=== PATIENT | female | born 1970 | race American Indian/Alaskan Native ===

== ENCOUNTER 2017-01-18 19:31 | Emergency (ER) | payer SELFPAY ==
[2017-01-18 20:17] LABS: Basophils % (Auto) 0.8 % (0.0-1.8); Eosinophils % (Auto) 0.5 % (0.0-4.3); Hematocrit 38.8 % (30.3-42.9); Hemoglobin 12.6 gm/dl (10.1-14.3); Mean Corpuscular HGB Conc 33 % (30-34); Mean Corpuscular Volume 75 fl (79-97); Platelet Count 497 K/mm3 (140-440); Red Blood Count 5.14 M/mm3 (3.65-5.03); Red Cell Distribution Width 17.9 % (13.2-15.2); White Blood Count 11.7 K/mm3 (4.5-11.0)
[2017-01-18 20:29] LABS: Mean Corpuscular Hemoglobin 25 pg (28-32)
[2017-01-18 20:32] LABS: INR 1.01 (0.87-1.13)
[2017-01-18 20:33] LABS: Partial Thromboplastin Time 26.7 Sec. (24.2-36.6)
[2017-01-18 20:34] VITALS: BP 183/99
[2017-01-18 20:36] LABS: Anion Gap 19 mmol/L; Blood Urea Nitrogen 8 mg/dL (7-17); Calcium 9.3 mg/dL (8.4-10.2); Carbon Dioxide 28 mmol/L (22-30); Chloride 94.7 mmol/L (98-107); Glucose 131 mg/dL (65-100); Sodium 139 mmol/L (137-145)
--- NOTE | 2017-01-19 14:43 | ED Elopement Review ---
ED Pt Elopement review - Results review Lab results: Laboratory Tests 01/18/17 01/18/17 01/18/17 20:00 20:00 20:00 WBC 11.7 H RBC 5.14 H Hgb 12.6 Hct 38.8 MCV 75 L MCH 25 L MCHC 33 RDW 17.9 H Plt Count 497 H Lymph % (Auto) 26.1 Payne % (Auto) 5.1 Eos % (Auto) 0.5 Baso % (Auto) 0.8 Lymph # 3.1 Payne # 0.6 Eos # 0.1 Baso # 0.1 Seg Neutrophils % 67.5 Seg Neutrophils # 7.9 H PT 13.2 INR 1.01 APTT 26.7 Sodium 139 Potassium 3.0 L Chloride 94.7 L Carbon Dioxide 28 Anion Gap 19 BUN 8 Creatinine 0.8 Estimated GFR > 60 BUN/Creatinine Ratio 10.00 Glucose 131 H Calcium 9.3 Troponin T < 0.010 HCG, Qual 01/18/17 20:00 WBC RBC Hgb Hct MCV MCH MCHC RDW Plt Count Lymph % (Auto) Payne % (Auto) Eos % (Auto) Baso % (Auto) Lymph # Payne # Eos # Baso # Seg Neutrophils % Seg Neutrophils # PT INR APTT Sodium Potassium Chloride Carbon Dioxide Anion Gap BUN Creatinine Estimated GFR BUN/Creatinine Ratio Glucose Calcium Troponin T HCG, Qual Negative - Call Back decision Pt Call Back Decision: Call pt to return to ED [facility] (chest pain will likely require inpatient evaluation)
== END 2017-01-19 03:03 | disposition left against medical advice (07) ==
LOC: ED 19:31
DX: R07.9 Chest pain, unspecified (principal); E87.6 Hypokalemia
CPT/HCPCS: 36415; 80048; 84484; 84703; 85025; 85610; 85730; 93005; 93010

== ENCOUNTER 2017-01-23 15:45 | Inpatient (IN) | payer BC ==
--- NOTE | 2017-01-23 16:34 | Emergency Department Report ---
ED General Adult HPI - General Chief complaint: Recheck/Abnormal Lab/Rx Stated complaint: CP/DISCOMFORT Time Seen by Provider: 01/23/17 16:15 Source: patient Mode of arrival: Ambulatory Limitations: No Limitations - History of Present Illness Initial comments: 46-year-old female with history of hypertension, GERD, panic attacks presenting today because of low potassium. Patient states that she was her primary doctor week ago and had a potassium of 2.9. He had asked her to come to the emergency room when she came here but left without being seen. Her potassium here at the time was 3.0 and she is called back for evaluation. Patient states that she's been having left chest pain which she describes as numbness in the last couple weeks, states that the symptoms have been present in the past and have been attributed to a panic attack. Patient states that she recently had 2 sisters and she has been anxious related to this. Primary doctor is called in potassium prescription, 40 mEq everyday for the last 5 days. Thinks that her potassium may be low because she has not been eating as much. She is on 1 mg of Xanax 4 times a day as well as oxycodone 30 mg 3 times a day for chronic pain related to degenerative joint disease in her lower extremities. This is prescribed by her doctor. Patient had a prior stress test which was negative. - Related Data Home Medications Medication Instructions Recorded Confirmed Last Taken ALPRAZolam [Xanax TAB] 1 mg PO QID 01/23/17 01/23/17 01/22/17 Metoprolol [Lopressor TAB] 50 mg PO BID 01/23/17 01/23/17 Unknown Omeprazole Magnesium [PriLOSEC Otc] 20 mg PO QDAY 01/23/17 01/23/17 01/23/17 Oxycodone HCl [Roxicodone TAB] 30 mg PO QID 01/23/17 01/23/17 01/23/17 Triamter/Hctz 75-50 mg [Maxzide 1 tab PO QDAY 01/23/17 01/23/17 01/23/17 75-50 mg] Zolpidem [Ambien] 10 mg PO QHS 01/23/17 01/23/17 01/22/17 Allergies Allergy/AdvReac Type Severity Reaction Status Date / Time No Known Allergies Allergy Verified 01/18/17 19:43 ED Review of Systems ROS: Stated complaint: CP/DISCOMFORT Other details as noted in HPI Comment: All other systems reviewed and negative Constitutional: denies: chills, fever Eyes: denies: eye pain Respiratory: denies: cough Cardiovascular: chest pain Gastrointestinal: denies: abdominal pain, nausea, vomiting Genitourinary: denies: urgency Skin: denies: rash Neurological: denies: weakness, numbness, paresthesias, confusion, abnormal gait , vertigo Psychiatric: anxiety. denies: homicidal thoughts, suicidal thoughts ED Past Medical Hx - Past Medical History Previous Medical History?: Yes Hx Hypertension: Yes Hx GERD: Yes Additional medical history: HTN, Anxiety, Insomia, Foot pain, DDD - Surgical History Past Surgical History?: Yes Additional Surgical History: Tubal, Feet, EYE - Social History Smoking Status: Current Every Day Smoker Substance Use Type: None - Medications Home Medications: Home Medications Medication Instructions Recorded Confirmed Last Taken Type ALPRAZolam [Xanax TAB] 1 mg PO QID 01/23/17 01/23/17 01/22/17 History Metoprolol [Lopressor TAB] 50 mg PO BID 01/23/17 01/23/17 Unknown History Omeprazole Magnesium [PriLOSEC Otc] 20 mg PO QDAY 01/23/17 01/23/17 01/23/17 History Oxycodone HCl [Roxicodone TAB] 30 mg PO QID 01/23/17 01/23/17 01/23/17 History Triamter/Hctz 75-50 mg [Maxzide 1 tab PO QDAY 01/23/17 01/23/17 01/23/17 History 75-50 mg] Zolpidem [Ambien] 10 mg PO QHS 01/23/17 01/23/17 01/22/17 History ED Physical Exam - General Limitations: No Limitations - Head Head exam: Present: atraumatic - Eye Eye exam: Present: normal appearance - ENT ENT exam: Present: normal exam - Respiratory Respiratory exam: Present: normal lung sounds bilaterally. Absent: respiratory distress - Cardiovascular Cardiovascular Exam: Present: regular rate, normal rhythm, normal heart sounds - GI/Abdominal GI/Abdominal exam: Present: soft. Absent: distended, tenderness - Extremities Exam Extremities exam: Present: normal inspection - Neurological Exam Neurological exam: Present: alert, oriented X3 - Psychiatric Psychiatric exam: Present: other (depressed, tearful when talking about her sisters). Absent: manic, homicidal ideation - Skin Skin exam: Present: normal color ED Course Vital Signs 01/23/17 01/23/17 01/23/17 15:56 16:54 16:59 Temperature 98.4 F Pulse Rate 68 Respiratory 16 16 Rate Blood Pressure 128/91 O2 Sat by Pulse 98 100 Oximetry 01/23/17 01/23/17 01/23/17 17:20 17:26 17:30 Temperature Pulse Rate 65 66 Respiratory 16 16 13 Rate Blood Pressure 116/80 O2 Sat by Pulse 100 100 99 Oximetry 01/23/17 01/23/17 01/23/17 17:59 18:00 18:31 Temperature Pulse Rate 68 Respiratory 13 13 Rate Blood Pressure 113/76 O2 Sat by Pulse 97 100 Oximetry 01/23/17 01/23/17 19:01 19:35 Temperature 98.6 F Pulse Rate 66 Respiratory 16 12 Rate Blood Pressure O2 Sat by Pulse 100 100 Oximetry ED Medical Decision Making - Lab Data Result diagrams: 01/23/17 16:34 01/23/17 16:34 - EKG Data -: EKG Interpreted by Me - Medical Decision Making EKG shows normal sinus rhythm at a rate of 71, questionable prior septal infarct , no ST-T changes labs including troponin and potassium She requesting anxiety and pain medications, ordering 2 Percocets and home dose of Xanax If her troponin level is negative the Heart score would be 3, making her stable for outpatient management My clinical suspicion for an acute cardiac event is very low, the patient is likely CXR negative labs unremarkable other than leukocytosis Patient states her sister at age 47 from a massive DC making for + family history along with smoking and HTN making 3 risk factors. HEART score of 4 requiring inpatient admission Critical care attestation.: If time is entered above; I have spent that time in minutes in the direct care of this critically ill patient, excluding procedure time. ED Disposition Clinical Impression: Chest pain Qualifiers: Chest pain type: unspecified Qualified Code(s): R07.9 - Chest pain, unspecified Disposition: OP ADMITTED IP TO THIS HOSP Is pt being admited?: Yes Does the pt Need Aspirin: Yes Condition: Serious Time of Disposition: 22:15 (Spoke to Dr. Anna)
[2017-01-23] MEDS ORDERED: XANAX PO ONE (16:35)
[2017-01-23] MEDS ORDERED: PERCOCET 5/325 PO ONE (16:35)
[2017-01-23 17:00] LABS: Basophils % (Auto) 0.8 % (0.0-1.8); Eosinophils % (Auto) 1.1 % (0.0-4.3); Hematocrit 39.7 % (30.3-42.9); Hemoglobin 12.7 gm/dl (10.1-14.3); Mean Corpuscular HGB Conc 32 % (30-34); Mean Corpuscular Volume 76 fl (79-97); Platelet Count 502 K/mm3 (140-440); Red Blood Count 5.21 M/mm3 (3.65-5.03); Red Cell Distribution Width 18.4 % (13.2-15.2); White Blood Count 14.1 K/mm3 (4.5-11.0)
[2017-01-23 17:03] LABS: Mean Corpuscular Hemoglobin 24 pg (28-32)
[2017-01-23 17:21] LABS: Anion Gap 17 mmol/L; BUN/Creatinine Ratio 8.88; Blood Urea Nitrogen 8 mg/dL (7-17); Calcium 9.6 mg/dL (8.4-10.2); Carbon Dioxide 29 mmol/L (22-30); Chloride 95.2 mmol/L (98-107); Glucose 90 mg/dL (65-100); Sodium 137 mmol/L (137-145)
[2017-01-23] MEDS ORDERED: BABY ASPIRIN PO ONE (22:01)
[2017-01-23] MEDS ORDERED: MILK OF MAGNESIA PO PRN (23:26)
[2017-01-23] MEDS ORDERED: SODIUM CHLORIDE FLUSH SYRINGE 10 ML IV PRN (23:26)
[2017-01-23] MEDS ORDERED: TYLENOL PO PRN (23:26)
[2017-01-23] MEDS ORDERED: ZOFRAN IV PRN (23:26)
[2017-01-23] MEDS ORDERED: DULCOLAX PR PRN (23:26)
--- NOTE | 2017-01-23 23:30 | History and Physical Report ---
History of Present Illness Date of examination: 01/23/17 History of present illness: 46-year-old man with hypertension, GERD comes emergency room with comments of chest pain. Pain is in the epigastric area which she describes as squeezing pain, ongoing for one week, radiating to the left side, intermittent in nature lasting for hours, she cannot identify exacerbating or relieving factors. Denies nausea vomiting, shortness breath, diaphoresis or palpitation Patient denies cough, abdominal pain, hematochezia, dysuria, frequency, focal weakness, dysarthria, fever chills, polydipsia polyuria, hot or cold intolerance , easy bruisability, or rash or bleeding from mucosal membrane, rhinorrhea, epistaxis, earache, tinnitus, blurry vision, eye discharge, anxiety, depression. Other review of systems negative PAST SURGICAL HISTORY: Tubal ligation, bunionectomy SOCIAL HISTORY: No alcohol, tobacco, drugs FAMILY HISTORY: Hypertension Medications and Allergies Allergies Allergy/AdvReac Type Severity Reaction Status Date / Time No Known Allergies Allergy Verified 01/18/17 19:43 Home Medications Medication Instructions Recorded Confirmed Last Taken Type ALPRAZolam [Xanax TAB] 1 mg PO QID 01/23/17 01/23/17 01/22/17 History Metoprolol [Lopressor TAB] 50 mg PO BID 01/23/17 01/23/17 Unknown History Omeprazole Magnesium [PriLOSEC Otc] 20 mg PO QDAY 01/23/17 01/23/17 01/23/17 History Oxycodone HCl [Roxicodone TAB] 30 mg PO QID 01/23/17 01/23/17 01/23/17 History Triamter/Hctz 75-50 mg [Maxzide 1 tab PO QDAY 01/23/17 01/23/17 01/23/17 History 75-50 mg] Zolpidem [Ambien] 10 mg PO QHS 01/23/17 01/23/17 01/22/17 History Exam - Physical Exam Narrative exam: Gen. appearance: Patient lying in bed, no apparent distress HEENT: Normocephalic, atraumatic, pupils equally round and reactive to light, extraocular movement intact, and no sclericterus,. No JVD or thyromegaly or nodule,neck supple, no carotid bruit ,mucous membranes moist, no exudate or erythema Heart: S1, S2, regular rate and rhythm Lungs: Clear to auscultation bilaterally, breathing comfortable Abdomen: Positive bowel sounds, nontender, nondistended, no organomegaly Extremity: No edema, cyanosis, clubbing Skin: No rash, nodules, warm, dry Neuro: Oriented 3, cranial nerves II-12 intact, speech is fluent, motor and sensory intact - Constitutional Vitals: Temp Pulse Resp BP Pulse Ox 98.6 F 66 12 113/76 100 01/23/17 19:35 01/23/17 19:01 01/23/17 19:35 01/23/17 18:00 01/23/17 19:35 Results - Labs CBC & Chem 7: 01/24/17 02:06 01/24/17 02:06 Labs: Abnormal lab results 01/23/17 01/23/17 Range/Units 16:34 16:34 WBC 14.1 H (4.5-11.0) K/mm3 RBC 5.21 H (3.65-5.03) M/mm3 MCV 76 L (79-97) fl MCH 24 L (28-32) pg RDW 18.4 H (13.2-15.2) % Plt Count 502 H (140-440) K/mm3 [place] % (Auto) 7.9 H (0.0-7.3) % [place] # 1.1 H (0.0-0.8) K/mm3 Seg Neutrophils # 8.3 H (1.8-7.7) K/mm3 Chloride 95.2 L (98-107) mmol/L - Imaging and Cardiology EKG: image reviewed Chest x-ray: image reviewed Assessment and Plan Chest pain, rule out ACS Hypertension Check cardiac enzymes, lipid profile, stress test Start aspirin, IV morphine, DVT prophylaxis
[2017-01-24] MEDS: PERCOCET 5/325 PO PRN ×2 (02:03→11:54)
[2017-01-24 02:51] LABS: Hematocrit 41.5 % (30.3-42.9); Hemoglobin 13.5 gm/dl (10.1-14.3); Mean Corpuscular HGB Conc 33 % (30-34); Mean Corpuscular Volume 75 fl (79-97); Platelet Count 497 K/mm3 (140-440); Red Cell Distribution Width 18.6 % (13.2-15.2); White Blood Count 14.1 K/mm3 (4.5-11.0)
[2017-01-24 03:01] LABS: Blood Urea Nitrogen 8 mg/dL (7-17); Calcium 9.4 mg/dL (8.4-10.2); Carbon Dioxide 28 mmol/L (22-30); Glucose 82 mg/dL (65-100)
[2017-01-24 03:02] LABS: Anion Gap 19 mmol/L; Chloride 93.9 mmol/L (98-107); Sodium 138 mmol/L (137-145)
[2017-01-24 03:05] LABS: Creatine Kinase 72 units/L (30-135)
[2017-01-24 03:08] LABS: Mean Corpuscular Hemoglobin 25 pg (28-32)
[2017-01-24 03:09] LABS: Potassium 3.1 mmol/L (3.6-5.0)
[2017-01-24 03:10] LABS: Creatine Kinase MB < 1.0 ng/mL (0.0-4.0)
[2017-01-24 07:44] LABS: Anisocytosis 1+; Basophils % (Manual) 0 % (0.0-1.8); Blastocytes % (Manual) 0 %; Diff Status Complete; Hypochromasia 1+
--- NOTE | 2017-01-24 07:58 | Admit Criteria Form ---
Admission Criteria Documentation: CARDIOLOGY GRG Clinical Indications for Admission to Inpatient Care ( Place 'X' for any and all applicable criteria): Hospital admission is needed for appropriate care of the patient because of ANY ONE of the following (1): [ ] I. Hemodynamic instability as indicated by ALL of the following (1)(2)(3) (4)(5) [ ]a) Vital signs or other findings not as expected for chronic patient condition or baseline [ ]b) Instability indicated by ANY ONE of the following: [ ]i) Hypotension [ ]ii) Symptomatic Tachycardia unresponsive to treatment ( e.g., analgesia, fluids, sedation as indicated) [ ]iii) Inadequate perfusion indicated by ANY ONE of the following: [ ] 1) Lactic acidosis (> 2 mmol/L) [ ] 2) New abnormal capillary refill (> 3 seconds) [ ] 3) Reduced urine output [ ] 4) New altered mental status [ ]iv) Orthostatic vital sign changes unresponsive to treatment (e.g., fluids) [ ]v) IV inotropic or vasopressor medication required to maintain adequate blood pressure or perfusion [ ] II. Severe heart failure as indicated by ANY ONE of the following(17)(18) [ ]a) Respiratory distress [ ]b) Hypotension [ ]c) Anasarca (refractory to outpatient therapy) [ ]d) Cardiac arrhythmias of immediate concern [ ]e) Myocardial ischemia [ ] III. Cardiac arrhythmias or findings of immediate concern indicated by ANY ONE of the following (19)(20): [ ] a) Heart rhythms that are inherently dangerous or unstable indicated by ANY ONE of the following (21)(22)(23): [ ] i) Resuscitated ventricular fibrillation or cardiac arrest [ ] ii) Ventricular escape rhythm [ ] iii) Sustained ventricular tachycardia (30 seconds or more of ventricular rhythm at greater than 100 beats per minute) [ ] iv) Nonsustained ventricular tachycardia and ANY ONE of the following: [ ] 1) Suspected cardiac ischemia as cause or consequence of ventricular tachycardia [ ] 2) In setting of acute myocarditis [ ] b) Unstable cardiac conduction defects indicated by ANY ONE of the following(23)(24)(25) [ ] i) Type II second-degree atrioventricular block [ ]ii) Third-degree atrioventricular block [ ]iii) New-onset left bundle branch block with suspected myocardial ischemia [ ]c) Any heart rhythm and ANY ONE of the following (21)(22)(26)(27) (28) [ ] i) Continuous long-term ECG monitoring needed (e.g., initiation of drug requiring monitoring for more than 24 hours) [ ] ii) Patient has automatic implanted cardioverter defibrillator that is repeatedly firing, malfunctioning, or in need of immediate adjustment of settings beyond the scope of ambulatory or observation care [ ]d) Heart rhythms of concern due to ANY ONE of the following: [ ] i) Hypotension [ ] ii) Respiratory distress [ ] iii) Association with other significant symptoms (e.g., bradycardia with syncope or ongoing dizziness, supraventricular tachycardia with chest pain (14)(15)(17) [ ] IV. Monitoring for cardiac contusion beyond the scope of observation care needed [A](30)(31)(32) [ ] V. Surgical or device complication (e.g., valve replacement complication , pacemaker dysfunction) (35)(41)(44)(45)(46) [ ] . Inpatient palliative care needed. [B](49) Also use Inpatient Palliative Care Criteria [ ] VII. Nonbacterial thrombotic (marantic) endocarditis (36)(43)(47)(48) [X] VIII. Cardiology condition, symptom, or finding for which emergency and observation care has failed or are not considered appropriate. [ ] IX. Acute valvular disease requiring inpatient as indicated by ANY ONE of the following (41) [ ]a) Acute valvular regurgitation (42) [ ]b) Noninfectious valvulitis (43) [ ]c) Obstructive valve thrombosis [ ]d) Paravalvular leak [ ]e) Other significant valvular disorder remaining after emergency or observation level of care (as appropriate) [ ]X. Pericardial disease requiring inpatient treatment as indicated by ANY ONE of the following (33)(34)(35)(36)(37) [ ]a) Suspected tamponade (38)(39)(40) [ ]b) Hemopericardium [ ]c) Other significant pericardial disorder remaining after emergency or observation level of care (as appropriate) [ ] XI. Cardiac ischemia beyond scope of emergency and observation care. [ ] XII. Hypertension requiring inpatient treatment as indicated by ANY ONE of the following (6)(7)(8) [ ]a) SBP greater than 220 mm Hg or DBP greater than 120 mmHg despite treatment [ ]b) SBP greater than 140 mm Hg or DBP greater than 100 mm Hg with evidence of acute end organ damage as indicated by ANY ONE of the following [ ] i) Altered mental status [ ] ii) Acute renal failure as indicated by new onset of ANY ONE of the following (9)(10)(11)(12)(13) [ ]1) 3-fold rise in serum creatinine from baseline [ ]2) Serum creatinine greater than 4 mg/dL ( 354 micromoles/L) with acute rise greater than 0.5 mg/dL (44.2 micromoles/L) [ ]3) Reduction of more than 75% in estimated glomerular filtration rate from baseline [ ]4) Estimated glomerular filtration rate less than 35 mL/min/1.73m2 (0.59 mL/sec/1.73m2) in child up to 18 years of age [ ]5) Cessation of urine output indicated by ALL of the following [ ]A. Adequate volume status [ ]B. Inadequate urine output as indicated by ANY ONE of the following [ ]a. Urine output less than 0.3 mL/kg/hr for 24 hours [ ]b. Anuria (urine output less than 0.1 mL/kg/hr) for 12 hours [ ] iii) Aortic dissection [ ] iv) Myocardial Ischemia [ ] v) Left ventricular heart failure [ ]vi) Retinal Hemorrhage [ ]vii) Other significant finding [ ]c) Hypertension in child requiring inpatient treatment as indicated by ALL of the following(14)(15)(16) [ ] i) Outpatient treatment not effective, not available, or not appropriate [ ]ii) SBP or DBP greater than 95th percentile for age [ ]iii) Evidence of acute end organ damage as indicated by ANY ONE of the following [ ]1) Altered mental status [ ]2) Acute renal failure as indicated by new onset of ANY ONE of the following(9)(10)(11)(12)(13) [ ]A. 3-fold rise in serum creatinine from baseline [ ]B. Serum creatinine greater than 4 mg/dL (354 micromoles/L) with acute rise greater than 0.5 mg/dL (44.2 micromoles/L) [ ]C. Reduction of more than 75% in estimated glomerular filtration rate from baseline [ ]D. Estimated glomerular filtration rate less than 35 mL/min/1.73m2 (0.59 mL/sec/1.73m2) in child up to 18 years of age [ ]E. Cessation of urine output indicated by ALL of the following [ ]a. Adequate volume status [ ]b. Inadequate urine output as indicated by ANY ONE of the following [ ]i) Urine output less than 0.3 mL/kg/hr for 24 hours [ ]ii) Anuria ( urine output less than 0.1 mL/kg/hr) for 12 hours [ ]3) Severe headache [ ]4) Visual disturbance [ ]5) Retinal hemorrhage [ ]6) Other significant finding [ ]XIII. Complications of transplanted heart indicated by ANY ONE of the following(61): [ ]a) Acute graft rejection requiring inpatient management (eg, intravenous immunosuppression)(62)(63) [ ]b) Acute graft heart failure indicated by ANY ONE of the following(64): [ ]i) Hemodynamic instability [ ]ii) Cardiac arrhythmias of immediate concern [ ]iii) Pulmonary edema that is very severe (eg, mechanical ventilation needed, imminent or likely, need for 100% oxygen to keep oxygen saturation above 90%) [ ]iv) Pulmonary edema that is persistent as indicated by ALL of the following: [ ]1) New need for oxygen therapy to keep oxygen saturation above 90% (or increased FiO2 need from baseline) [ ]2) Has not improved sufficiently with emergency department or observation care IV diuretics or other heart failure treatments[E] [ ]v) Altered mental status that is severe or persistent [ ]vi) Increased creatinine (new on laboratory test) with reduction of more than 50% in estimated glomerular filtration rate from baseline [ ]vii) Progressively (ongoing) rising creatinine (known from past laboratory test) with reduction of more than 25% in estimated glomerular filtration rate from baseline [ ]viii) Acute renal failure [ ]ix) Acute peripheral ischemia (eg, examination shows pulseless, cool, mottled, or cyanotic extremity) [ ]x) Pulmonary artery catheter monitoring needed [ ]xi) Other sign or symptom of heart failure requiring inpatient treatment (ie, too severe or not responsive to outpatient and observation care treatment) [ ]c) Infection requiring inpatient management (eg, Hemodynamic instability, need for intravenous antimicrobial treatment)(66)(67)(68)(69)(70) [ ]d) Cardiac allograft vasculopathy requiring inpatient management ( eg evidence of cardiac ischemia)(71) [ ]e) Other complication of transplanted heart (eg, stroke, severe pulmonary hypertension, severe valvular dysfunction) requiring inpatient management(72) The original [facility] [employer] content created by [facility] has been revised. The portions of the content which have been revised are identified through the use of italic text or in bold, and [facility] has neither reviewed nor approved the modified material. All other unmodified content is copyright [facility] [employer]. Please see references footnoted in the original [facility] [employer] edition 2016 Admission Criteria Met: Yes
--- NOTE | 2017-01-24 08:11 | XRay Report ---
AP CHEST: HISTORY: chest pain AP view of the chest demonstrates a normal mediastinal and cardiac contour with clear lungs and normal bony and soft tissue structures. IMPRESSION: Unremarkable AP chest.
--- NOTE | 2017-01-24 08:50 | Discharge Summary ---
Providers - Providers Date of Admission: 01/23/17 23:26 Date of discharge: 01/24/17 Attending physician: ANDREIA MARIE Primary care physician: NYLA PATEL MD Hospitalization Condition: Serious Hospital course: 46-year-old man with hypertension, GERD comes emergency room with complaints of chest pain. Pain was in the epigastric area which she described as squeezing pain, ongoing for one week, radiating to the left side, intermittent in nature lasting for hours, she could not identify exacerbating or relieving factors. She was admitted to the telemetry bed and monitored with serial enzymes and EKG. She was evaluated by myocardial stress test and that was essentially negative. She was discharged home in stable condition. She'll follow up with her primary care doctor in 1 week. Discharge Diagnosis: Chest pain, ruled out ACS, likely due to GERD Hypertension, cont home meds hypokalemia, replaced History of GERD, continue PPI Disposition: DISCHARGED TO HOME OR SELFCARE Time spent for discharge: 32 minutes Core Measure Documentation - Palliative Care Palliative Care/ Comfort Measures: Not Applicable - Core Measures Any of the following diagnoses?: none Exam - Constitutional Vitals: Temp Pulse Resp BP Pulse Ox 97.8 F 63 20 105/68 98 01/24/17 06:57 01/24/17 06:57 01/24/17 06:57 01/24/17 06:57 01/24/17 08:09 General appearance: Present: no acute distress, well-nourished - EENT Eyes: Present: PERRL ENT: hearing intact, clear oral mucosa - Neck Neck: Present: supple, normal ROM - Respiratory Respiratory effort: normal Respiratory: bilateral: CTA - Cardiovascular Heart Sounds: Present: S1 & S2. Absent: rub, click - Extremities Extremities: pulses symmetrical, No edema Peripheral Pulses: within normal limits - Abdominal General gastrointestinal: Present: soft, non-tender, non-distended, normal bowel sounds - Integumentary Integumentary: Present: clear, warm, dry - Musculoskeletal Musculoskeletal: gait normal, strength equal bilaterally - Psychiatric Psychiatric: appropriate mood/affect, intact judgment & insight - Neurologic Neurologic: CNII-XII intact, moves all extremities Plan Activity: advance as tolerated Weight Bearing Status: Weight Bear as Tolerated Diet: low cholesterol, low salt Follow up with: [facility] [Provider Group] - 7 Days PRIMARY CARE, [Primary Care Provider] - 3-5 Days Prescriptions: Aspirin EC [Aspirin Enteric Coated TAB] 81 mg PO QDAY #30 tablet.
[2017-01-24] MEDS ORDERED: LEXISCAN IV ONE ×2 (08:55→08:59)
[2017-01-24] MEDS ORDERED: K-DUR PO NR (09:00)
--- NOTE | 2017-01-24 09:25 | Query- Chest Pain ---
Evelia Biswas____Seema Date:____01/24/17 Yuliana/CDS:____King Belcher Phone#: [phone] Exercise your independent professional judgment when responding to query. Questions asked do not imply a particular answer is desired or expected. We greatly appreciate your clarification on this issue. Clinical Documentation States: 46 year old female was admitted on 01/23/17. The discharge summary states " Hospital course: Discharge Diagnosis: Chest pain , rule out ACS Hypertension " Clinical Findings Show: Chest x-ray: Unremarkable AP chest Please document the etiology of Chest Pain: [ ] Myocardial Infarction [ ] Pneumonia [ ] Mediastinitis [ ] Costochondritis [ ] Pulmonary Embolism [ ] Coronary Artery Disease [ ] GERD [ ] Other: [ ] Comment/Explanation: Present on Admission: [ ] Yes (Y) [ ] Clinically undeterminable (W) [ ] No(N) Please document response in your Progress Notes and/or Discharge Summary and indicate if the condition was present on admission. RENATE
[2017-01-24] MEDS ORDERED: ECOTRIN PO SCH (10:00)
[2017-01-24] MEDS ORDERED: LOVENOX SUB-Q SCH (10:00)
[2017-01-24 12:05] LABS: Creatine Kinase 59 units/L (30-135)
[2017-01-24 12:06] LABS: Creatine Kinase MB < 1.0 ng/mL (0.0-4.0)
[2017-01-24 12:14] VITALS: BP 136/76
--- NOTE | 2017-01-25 01:57 | Treadmill Report ---
THALLIUM STRESS TEST LEFT VENTRICLE: Left ventricular chamber size is within normal. Perfusion study demonstrates homogeneous uptake of the tracer in all segments, no significant perfusion defects identified. Gated analysis demonstrates normal left ventricular systolic function, ejection fraction 69%. CONCLUSION: Normal myocardial perfusion study. JOB# [id number] CA/NTS
== END 2017-01-24 14:06 | disposition home or self-care (01) | DRG 392 ==
LOC: ED 15:45 → 4A 23:26
PROVIDERS: ADMIT Internal Medicine; ATTEND Internal Medicine
DX: K21.9 Gastro-esophageal reflux disease without esophagitis (principal); I10 Essential (primary) hypertension; G89.29 Other chronic pain; F41.9 Anxiety disorder, unspecified; G47.00 Insomnia, unspecified; F17.210 Nicotine dependence, cigarettes, uncomplicated; E87.6 Hypokalemia; Z79.899 Other long term (current) drug therapy; Z82.49 Family history of ischemic heart disease and other diseases of the circulatory system; Z98.51 Tubal ligation status
CPT/HCPCS: 36415; 71010; 78452; 80048; 80061; 82550; 82553; 84484; 85007; 85025; 93005; 93010; 93017; A9502; J2785